=== PATIENT | male | born 1985 | race African-American/Black ===

== ENCOUNTER 2017-04-16 12:27 | Emergency (ER) | payer OTHER ==
[~2017-04-16] VITALS: Ht 167.6 cm; Wt 63.8 kg
[2017-04-16] MEDS ORDERED: PEN-VEE K,VEET500 MG PO (13:34)
[2017-04-16] MEDS ORDERED: PERCOCET 5/31 TABLET PO (13:34)
[2017-04-16 13:56] VITALS: BP 122/67
== END 2017-04-16 14:13 | disposition home or self-care (01) ==
LOC: EME 12:27
DX: K08.89 Other specified disorders of teeth and supporting structures (principal); F17.200 Nicotine dependence, unspecified, uncomplicated
CPT/HCPCS: 99281; 99283